=== PATIENT | male | born 1995 | race Caucasian/White ===

== ENCOUNTER → 2018-12-27 | Outpatient (CLI) | payer OTHER | END | disposition home or self-care (01) | LOC: NUCLEAR 11:00 | DX: R22.32 Localized swelling, mass and lump, left upper limb (principal); M79.662 Pain in left lower leg ==

== ENCOUNTER 2018-12-30 07:25 | Outpatient (CLI) | payer OTHER | END 2018-12-30 08:00 | disposition home or self-care (01) | LOC: NUCLEAR 07:25 | DX: R22.32 Localized swelling, mass and lump, left upper limb (principal); I73.9 Peripheral vascular disease, unspecified ==